=== PATIENT | female | born 1975 | race Two or more races ===

== ENCOUNTER → 2019-11-19 | Emergency (ER) | payer OTHER ==
[~2019-11-19] VITALS: Ht 180.3 cm; Wt 96.6 kg
[~2019-11-19] MED LIST: CIPRO500 MG PO; DICLOFENAC SODI75 MG PO
== END | disposition home or self-care (01) ==
LOC: ER 20:43
DX: S91.322A Laceration with foreign body, left foot, initial encounter (principal); W45.8XXA Other foreign body or object entering through skin, initial encounter; Y93.89 Activity, other specified; Y92.810 Car as the place of occurrence of the external cause; Y99.8 Other external cause status

== ENCOUNTER → 2019-11-26 | Emergency (ER) | payer OTHER ==
[~2019-11-26] VITALS: Ht 180.3 cm; Wt 96.6 kg
== END | disposition left against medical advice (07) ==
LOC: ER 12:10
DX: Z53.20 Procedure and treatment not carried out because of patient's decision for unspecified reasons (principal)

== ENCOUNTER 2019-11-30 11:12 | Emergency (ER) | payer OTHER ==
[~2019-11-30] VITALS: Ht 180.3 cm; Wt 96.6 kg
== END 2019-11-30 13:03 | disposition home or self-care (01) ==
LOC: ER 11:12
DX: Z48.02 Encounter for removal of sutures (principal)

== ENCOUNTER 2023-06-19 15:59 | Emergency (ER) | payer OTHER ==
[~2023-06-19] VITALS: Ht 180.3 cm; Wt 93.4 kg
[2023-06-19] MEDS ORDERED: DIETHYLPROPION75 MG (16:02)
[2023-06-19] MEDS ORDERED: hydrOXYzine PAMOATE 25 MG CAPSULE PO ONE (17:15)
[2023-06-19] MEDS ORDERED: VISTARIL25 MG PO (19:28)
== END 2023-06-19 19:53 ==
LOC: ER 15:59
DX: F41.9 Anxiety disorder, unspecified (principal); R07.89 Other chest pain